=== PATIENT | male | born 1960 | race Caucasian/White ===

== ENCOUNTER → 2016-08-16 | Outpatient (CLI) | payer BC | END | disposition home or self-care (01) | LOC: GMAB 12:37 | PROVIDERS: ATTEND Family Medicine | DX: R06.02 Shortness of breath (principal) ==

== ENCOUNTER → 2016-09-17 | Outpatient (CLI) | payer BC ==
--- NOTE | 2016-09-17 14:08 | US ---
EXAM DESCRIPTION: Venous,Lower Extremity LT CLINICAL HISTORY: Acute embolism and thrombosis of unspecified iliac vein COMPARISON: None Available. TECHNIQUE: Left lower extremity venous duplex. Fuentes scale, color Doppler imaging, and spectral pulse Doppler evaluation was performed FINDINGS: There is no DVT identified. The examination was accomplished from the inguinal ligament at the common femoral vein through the thigh and into the leg with evaluation of the peroneal and posterior tibial veins. There is normal color flow observed with good flow augmentation. All deep veins compress normally. IMPRESSION: Negative for DVT Electronically signed by: Klaus Rader MD 09/17/2016 2:07 PM CDT
== END | disposition home or self-care (01) ==
LOC: US 08:11
PROVIDERS: ATTEND Family Medicine
DX: I82.429 Acute embolism and thrombosis of unspecified iliac vein (principal)